=== PATIENT | female | born 1970 | race Caucasian/White ===

== ENCOUNTER 2017-12-20 22:19 | Emergency (ER) | payer MEDICAID ==
[~2017-12-20] VITALS: Ht 167.6 cm; Wt 87.6 kg
[2017-12-20 23:08] LABS: INR 0.9 INR; PROTHROMBIN TIME 9.6 SECONDS (9.0-12.0)
[2017-12-20 23:14] LABS: ALANINE AMINOTRANSFERASE 31 U/L (12-78); ALBUMIN 3.6 G/DL (3.4-5.0); ALBUMIN/GLOBULIN RATIO 0.8 (1.1-1.5); ALKALINE PHOSPHATASE 75 IU/L (46-116); ANION GAP 15 (8-16); ASPARTATE AMINO TRANSFERASE 19 U/L (10-37); BILIRUBIN,TOTAL 0.5 MG/DL (0.1-1.0); BLOOD UREA NITROGEN 20 MG/DL (7-18); BUN/CREATININE RATIO 15.5 (6.6-38.0); CALCIUM 9.3 MG/DL (8.5-10.1); CHLORIDE 99 MMOL/L (99-107); CREATININE 1.29 MG/DL (0.40-0.90); GLUCOSE 124 MG/DL (70-104); LIPASE 156 U/L (73-393); POTASSIUM 3.4 MMOL/L (3.5-5.1); SODIUM 137 MMOL/L (135-145); TOTAL CARBON DIOXIDE 23.1 MMOL/L (24-32); TOTAL PROTEIN 7.9 G/DL (6.4-8.2); eGFR 44 ML/MIN
[2017-12-21 00:05] LABS: CLARITY,URINE SLIGHTLY CLOUDY (Clear); COLOR,URINE YELLOW (Yellow); GLUCOSE, URINE NEGATIVE (Neg); KETONES,URINE 15 mg/dl (Neg); LEUKOCYTE ESTERASE ,URINE NEGATIVE (Neg); NITRITES, URINE NEGATIVE (Neg); OCCULT BLOOD,URINE LARGE (Neg); PH,URINE 5.5 (4.8-8.0); PROTEIN,URINE TRACE mg/dl (Neg); UROBILINOGEN,URINE 0.2 E.U/dL (0.2-1.0)
[2017-12-21 00:10] LABS: UA COLLECTION TYPE CLN CATCH MIDSTREAM
[2017-12-21 00:12] LABS: BACTERIA,URINE FEW /HPF (Neg); CAL OXALATE CRYSTALS FEW /HPF (NEGATIVE); MUCUS STRANDS FEW /LPF (Neg); RBC,URINE 50-100 /HPF (0-2); SQUAMOUS EPITHELIAL CELL,UR FEW /LPF (FEW); WBC,URINE NONE SEEN /HPF (0-4)
[2017-12-21 00:18] LABS: BASOPHILS % (AUTO) 0 % (0-1); EOSINOPHILS % (AUTO) 0.1 % (0-6); HEMATOCRIT 45.5 % (35.0-45.0); HEMOGLOBIN 15.8 g/dl (12.0-16.0); LYMPHOCYTES # (AUTO) 0.9 X10'3 (1.1-4.8); LYMPHOCYTES % (AUTO) 4.8 % (21-51); MEAN CORPUSCULAR HEMOGLOBIN 30.2 PG (27.0-31.0); MEAN CORPUSCULAR HGB CONC 34.8 % (33.0-36.5); MEAN CORPUSCULAR VOLUME 86.8 FL (78-98); MEAN PLATELET VOLUME 8.2 FL (7.4-10.4); MONOCYTES # (AUTO) 0.5 X10'3 (0-0.9); MONOCYTES % (AUTO) 2.6 % (2-12); NEUTROPHILS # (AUTO) 18.1 X10'3 (1.8-7.7); NEUTROPHILS % (AUTO) 92.5 % (42-75); PLATELET COUNT 222 X10'3 (140-440); RED BLOOD COUNT 5.24 X10'6 (4.20-5.60); RED CELL DISTRIBUTION WIDTH 12.1 % (11.5-14.5); WHITE BLOOD COUNT 19.6 X10'3 (4.5-11.0)
[2017-12-21 01:40] VITALS: BP 154/92
[2017-12-21] MEDS ORDERED: morphine 4 MG/ML inj SYRINge IV ONE ×2 (02:30→03:35)
[2017-12-21] MEDS ORDERED: normal saline 1000ml 1,000 ML IV ONE ×3 (02:30→02:50)
[2017-12-21] MEDS ORDERED: ondansetron/PF 4mg/2ml inj IV ONE (02:45)
[2017-12-21] MEDS ORDERED: iohexol 300mg/ml 100ml inj. ONE (02:53)
[2017-12-21] MEDS ORDERED: DICY10CA88 PO (03:39)
[2017-12-21] MEDS ORDERED: METR500T PO (03:39)
[2017-12-21] MEDS ORDERED: CIPR-259 PO (03:39)
[2017-12-21] MEDS ORDERED: metroNIDAZOLE 500mg tablet PO ONE (03:40)
[2017-12-21] MEDS ORDERED: ciprofloxacin 250mg tablet PO ONE (03:40)
== END 2017-12-21 04:17 | disposition home or self-care (01) ==
LOC: ER 22:20
DX: K52.9 Noninfective gastroenteritis and colitis, unspecified (principal); Z90.89 Acquired absence of other organs
CPT/HCPCS: 36415; 74177; 80053; 81001; 83690; 85025; 85610; 87088; 96361; 96374; 96375; 96376; 99285; J2270; J2405; J3490; J7030; Q9967; 81003

== ENCOUNTER 2020-08-23 15:31 | Observation (INO) | payer BC, MEDICAID ==
[~2020-08-23] VITALS: Ht 167.6 cm; Wt 85.9 kg
[2020-08-23 16:33] LABS: BASOPHILS # (AUTO) 0.1 X10'3 (0-0.2); BASOPHILS % (AUTO) 0.8 % (0-1); EOSINOPHILS # (AUTO) 0.2 X10'3 (0-0.9); EOSINOPHILS % (AUTO) 2.1 % (0-6); HEMATOCRIT 41.1 % (35.0-45.0); HEMOGLOBIN 14.2 g/dl (12.0-16.0); LYMPHOCYTES # (AUTO) 2.7 X10'3 (1.1-4.8); LYMPHOCYTES % (AUTO) 24.6 % (21-51); MEAN CORPUSCULAR HEMOGLOBIN 30.4 PG (27.0-31.0); MEAN CORPUSCULAR HGB CONC 34.6 g/dL (33.0-36.5); MEAN CORPUSCULAR VOLUME 87.8 FL (78-98); MEAN PLATELET VOLUME 8.5 FL (7.4-10.4); MONOCYTES # (AUTO) 0.7 X10'3 (0-0.9); MONOCYTES % (AUTO) 6.3 % (2-12); NEUTROPHILS # (AUTO) 7.3 X10'3 (1.8-7.7); NEUTROPHILS % (AUTO) 66.2 % (42-75); PLATELET COUNT 219 X10'3 (140-440); RED BLOOD COUNT 4.68 X10'6 (4.20-5.60); RED CELL DISTRIBUTION WIDTH 12.9 % (11.5-14.5); WHITE BLOOD COUNT 11.1 X10'3 (4.5-11.0)
[2020-08-23 16:46] LABS: ALANINE AMINOTRANSFERASE 25 U/L (12-78); ALBUMIN 3.8 G/DL (3.4-5.0); ALKALINE PHOSPHATASE 58 IU/L (46-116); ANION GAP 9 (8-16); ASPARTATE AMINO TRANSFERASE 19 U/L (10-37); BILIRUBIN,TOTAL 0.2 MG/DL (0.1-1.0); BLOOD UREA NITROGEN 12 MG/DL (7-18); BUN/CREATININE RATIO 10.8 (6.6-38.0); CALCIUM 9.1 MG/DL (8.5-10.1); CHLORIDE 104 MMOL/L (99-107); CREATININE 1.11 MG/DL (0.40-0.90); GLUCOSE 110 MG/DL (70-104); POTASSIUM 3.3 MMOL/L (3.5-5.1); SODIUM 138 MMOL/L (135-145); TOTAL CARBON DIOXIDE 24.8 MMOL/L (24-32); TOTAL PROTEIN 7.6 G/DL (6.4-8.2); eGFR 52 ML/MIN
[2020-08-23] MEDS ORDERED: acetaminophen 325mg tablet PO ONE (18:10)
[2020-08-23 18:13] LABS: PARTIAL THROMBOPLASTIN TIME 24 SECONDS (22-32)
[2020-08-23] MEDS ORDERED: iohexol 350MG/ML 100ml bottle IV ONE (18:16)
[2020-08-23 18:27] LABS: CLARITY,URINE CLEAR (Clear); COLOR,URINE YELLOW (Yellow); GLUCOSE, URINE NEGATIVE (Neg); KETONES,URINE NEGATIVE (Neg); LEUKOCYTE ESTERASE ,URINE NEGATIVE (Neg); NITRITES, URINE NEGATIVE (Neg); OCCULT BLOOD,URINE NEGATIVE (Neg); PROTEIN,URINE NEGATIVE (Neg); UA COLLECTION TYPE CLN CATCH MIDSTREAM; UROBILINOGEN,URINE 0.2 E.U/dL (0.2-1.0)
--- NOTE | 2020-08-23 18:42 | NUR ---
TO CT VIA WC
[2020-08-23 18:44] LABS: URINE AMPHETAMINE SCREEN NEGATIVE (Neg); URINE BARBITUATE SCREEN NEGATIVE (Neg); URINE BENZODIAZEPINES SCREEN NEGATIVE (Neg); URINE CANNABINOID SCREEN NEGATIVE (Neg); URINE COCAINE SCREEN NEGATIVE (Neg); URINE METHADONE SCREEN NEGATIVE (Neg); URINE OPIATE SCREEN NEGATIVE (Neg); URINE PHENCYCLIDINE SCREEN NEGATIVE (Neg)
[2020-08-23] MEDS ORDERED: ESCI5TAB12 PO (19:26)
[2020-08-23] MEDS ORDERED: THYR90TA12 PO (19:26)
[2020-08-23] MEDS ORDERED: aspirin 325mg tablet PO ONE (19:55)
[2020-08-23 20:14] LABS: CHOL/HDL RATIO 3.8 (0.00-4.99); CHOLESTEROL 208 MG/DL (0-200); HDL CHOLESTEROL 55 MG/DL (35-60); LDL CHOLESTEROL 115 MG/DL (50-100); TRIGLYCERIDES 300 MG/DL (20-135)
[2020-08-23 20:20] LABS: HEMOGLOBIN A1C 5.6 % (4.5-6.2)
[2020-08-23] MEDS ORDERED: magnesium hydroxide 30ml (MOM) UD suspension PO PRN (20:25)
[2020-08-23] MEDS ORDERED: acetaminophen 325mg tablet PO PRN (20:25)
[2020-08-23] MEDS ORDERED: ondansetron/PF 4mg/2ml inj IV PRN (20:25)
[2020-08-23] MEDS ORDERED: mag hydrox/Alum hydrox/simeth 30ml oral suspension PO PRN (20:25)
[2020-08-23] MEDS ORDERED: aspirin 81mg tab.chew PO ONE (21:05)
--- NOTE | 2020-08-23 21:30 | NUR ---
Received report from Gerald DENNIS from ED. Bed in locked & low position. Call light placed within reach and educated on.
[2020-08-23 22:00] VITALS: BP 141/76
[2020-08-23] MEDS ORDERED: ESCITALOPRAM OXALATE 5 MG TABLET PO SCH (23:08)
[2020-08-23] MEDS ORDERED: magnesium Cl slow-release 64mg tablet PO PRN (23:10)
[2020-08-23] MEDS ORDERED: potassium Cl 20 mEq SR tablet PO PRN (23:10)
[2020-08-23] MEDS ORDERED: magnesium 4gm in 100ml NS 100 ML IV PRN (23:10)
[2020-08-23] MEDS ORDERED: potassium CL 10mEq/100ml bag 100 ML IV PRN (23:10)
[2020-08-23] MEDS: potassium Cl 20 mEq SR tablet PO PRN (23:24)
[2020-08-24 02:00] VITALS: BP 121/72
[2020-08-24] MEDS: potassium Cl 20 mEq SR tablet PO PRN (03:41)
[2020-08-24] MEDS ORDERED: acetaminophen 325mg tablet PO PRN (04:10)
[2020-08-24 06:00] VITALS: BP 126/77
[2020-08-24 06:09] LABS: BASOPHILS # (AUTO) 0.1 X10'3 (0-0.2); BASOPHILS % (AUTO) 0.8 % (0-1); EOSINOPHILS # (AUTO) 0.2 X10'3 (0-0.9); EOSINOPHILS % (AUTO) 2.2 % (0-6); HEMATOCRIT 39.4 % (35.0-45.0); HEMOGLOBIN 13.5 g/dl (12.0-16.0); LYMPHOCYTES # (AUTO) 3.3 X10'3 (1.1-4.8); MEAN CORPUSCULAR HEMOGLOBIN 30.1 PG (27.0-31.0); MEAN CORPUSCULAR HGB CONC 34.4 g/dL (33.0-36.5); MEAN CORPUSCULAR VOLUME 87.6 FL (78-98); MEAN PLATELET VOLUME 8.8 FL (7.4-10.4); MONOCYTES # (AUTO) 0.8 X10'3 (0-0.9); MONOCYTES % (AUTO) 7.5 % (2-12); NEUTROPHILS # (AUTO) 6.3 X10'3 (1.8-7.7); NEUTROPHILS % (AUTO) 58.5 % (42-75); PLATELET COUNT 205 X10'3 (140-440); RED BLOOD COUNT 4.49 X10'6 (4.20-5.60); RED CELL DISTRIBUTION WIDTH 12.8 % (11.5-14.5); WHITE BLOOD COUNT 10.8 X10'3 (4.5-11.0)
--- NOTE | 2020-08-24 06:11 | NUR ---
Problems reprioritized. Patient report given, questions answered & plan of care reviewed with Ann-Marie DENNIS.
[2020-08-24 06:17] LABS: ALANINE AMINOTRANSFERASE 23 U/L (12-78); ALBUMIN 3.3 G/DL (3.4-5.0); ALKALINE PHOSPHATASE 47 IU/L (46-116); ANION GAP 9 (8-16); ASPARTATE AMINO TRANSFERASE 13 U/L (10-37); BILIRUBIN,TOTAL 0.3 MG/DL (0.1-1.0); BLOOD UREA NITROGEN 10 MG/DL (7-18); BUN/CREATININE RATIO 9.6 (6.6-38.0); CALCIUM 8.8 MG/DL (8.5-10.1); CHLORIDE 107 MMOL/L (99-107); CHOL/HDL RATIO 3.5 (0.00-4.99); CHOLESTEROL 183 MG/DL (0-200); CREATININE 1.04 MG/DL (0.40-0.90); GLUCOSE 108 MG/DL (70-104); HDL CHOLESTEROL 53 MG/DL (35-60); LDL CHOLESTEROL 103 MG/DL (50-100); MAGNESIUM 1.8 MG/DL (1.5-2.4); POTASSIUM 3.8 MMOL/L (3.5-5.1); SODIUM 142 MMOL/L (135-145); TOTAL CARBON DIOXIDE 25.9 MMOL/L (24-32); TOTAL PROTEIN 6.7 G/DL (6.4-8.2); TRIGLYCERIDES 238 MG/DL (20-135); eGFR 56 ML/MIN
[2020-08-24] MEDS ORDERED: thyroid, pork 30mg tablet PO SCH (08:00)
[2020-08-24] MEDS ORDERED: K and/or MAG REPLACEMENT MC SCH (08:00)
[2020-08-24] MEDS ORDERED: heparin, porcine 5000 units/ml vial SQ SCH (08:00)
[2020-08-24 10:00] VITALS: BP 119/72
--- NOTE | 2020-08-24 11:00 | NUR ---
Dr. Perry wants patient to have tele neuro reevaluation to see if patient can get MRI out patient.
--- NOTE | 2020-08-24 11:30 | NUR ---
Spoke with Neurologist over phone, okay'd for patient to get MRI as an outpatient
--- NOTE | 2020-08-24 12:00 | NUR ---
Spoke with Dr. Perry told him about neurologist clearing patient for MRI as an outpatient.
--- NOTE | 2020-08-24 14:40 | NUR ---
Patient ready for discharge, PIV removed, cannula intact. All belongings gathered and sent home with patient. Home meds sent home with patient. D/C instructions reviewed with patient. Patient aware to follow up with PCP for an MRI.
== END 2020-08-24 14:35 | disposition home or self-care (01) ==
LOC: ER 15:32 → ED HOLD 20:24 → ORTHO 4S 21:34
PROVIDERS: ADMIT Internal Medicine; ATTEND Family Medicine
DX: G45.9 Transient cerebral ischemic attack, unspecified (principal); E03.9 Hypothyroidism, unspecified; Z79.899 Other long term (current) drug therapy
CPT/HCPCS: 36415; 70450; 70496; 70498; 71046; 80053; 80061; 80305; 81003; 83036; 83735; 83880; 84484; 85025; 85610; 85651; 85730; 87081; 93005; 93306; 96372; 99285; G0378; J1644; Q9967